=== PATIENT | male | born 1955 | race Caucasian/White ===

== ENCOUNTER 2016-11-05 14:00 | Observation (INO) | payer OTHER ==
[2016-11-05] MEDS ORDERED: guaiFENesin ER TAB 600 MG PO ONE (14:41)
[2016-11-05] MEDS ORDERED: Azithromycin IV(*) 500 MG in NS 0.9% 250 ML* 250 ML IVPB ONE (14:41)
[2016-11-05] MEDS ORDERED: Albuterol/Ipratropium NEB.SOL* Albuterol 2.5 MG/Ipratropium 0.5 MG 3 ML INH ONE (14:41)
[2016-11-05] MEDS ORDERED: NS 0.9% 1000 ML* 1,000 ML IV ONE ×2 (14:41→15:20)
[2016-11-05] MEDS ORDERED: Dexamethasone IV* 4 MG/ML 1 ML (4 MG) IV SLOW PU ONE (14:41)
[2016-11-05 14:57] LABS: Hematocrit 37 % (42-52); Hemoglobin 12.5 g/dl (14.0-18.0); Mean Corpuscular HGB Conc 34 g/dl (31-36); Mean Corpuscular Hemoglobin 34 pg (27-31); Mean Corpuscular Volume 101 fL (80-94); Mean Platelet Volume 9 um3 (7.4-10.4); Red Blood Count 3.65 10^6/ul (4.0-5.4); Red Cell Distribution Width 15 % (10.5-15); White Blood Count 4.6 10^3/ul (3.5-10.8)
[2016-11-05 15:08] LABS: Albumin 4.3 g/dL (3.2-5.2); BUN/Creatinine Ratio 13.7 (8-20); Calcium 8.9 mg/dL (8.6-10.3); EGFR African American 103.3 (>60); EGFR Non-African American 80.3 (>60); Globulin 2.5 g/dL (2-4); Potassium 3.9 mmol/L (3.5-5.0); Total Bilirubin 0.8 mg/dL (0.2-1.0); Total Protein 6.8 g/dL (6.4-8.9)
--- NOTE | 2016-11-05 15:12 | RAD ---
HISTORY: Cough, shortness of breath COMPARISONS: None VIEWS:1: Single frontal portable view of the chest at 2:57 PM FINDINGS: LINES AND TUBES: None. CARDIOMEDIASTINAL SILHOUETTE: The cardiomediastinal silhouette is normal for portable technique. PLEURA: The costophrenic angles are sharp. No pleural abnormalities are noted. LUNG PARENCHYMA: The lungs are clear. ABDOMEN: The upper abdomen is clear. There is no subphrenic gas. BONES AND SOFT TISSUES: No bone or soft tissue abnormalities are noted. IMPRESSION: NO ACTIVE CARDIOPULMONARY DISEASE.
[2016-11-05] MEDS ORDERED: Acetaminophen TAB* 325 MG PO ONE (15:24)
[2016-11-05] MEDS ORDERED: cefTRIAXone(*) 1 GM in NS 0.9% 50 ML* 50 ML IVPB ONE (15:40)
[2016-11-05 15:43] LABS: C Reactive Protein 12.55 mg/L (< 5.00)
--- NOTE | 2016-11-05 15:59 | ED ---
Respiratory - HPI Summary HPI Summary: Patient is a 61 asthmatic who presents to ED with CC of fever, chills, shortness of breath, body aches, sinus pressure and feeling like he can't breathe deep d/t obstructive mucous in the throat. He states his symptoms were acute onset on Thursday night and have progressively become worse. He states he has had something similiar in the past which started as a sinusitis and turned into a PNA. He has a productive cough with what he states is green mucous. On exam, no mucous was seen. He endorses PAULINO, but denies neck pain, or chest pain. He has had both a PNA vac and influenza vac this year. He denies significant health history and takes no medications. He has taken an albuterol inhaler for relief, but has not had improvement in symptoms. - History of Current Complaint Chief Complaint: EDFluSymptoms Stated Complaint: SINUS/THROAT Time Seen by Provider: 11/05/16 14:15 Hx Obtained From: Patient Onset/Duration: Sudden Onset Timing: Constant Initial Severity: Moderate Current Severity: Moderate Pain Intensity: 2 Character: Cough (Productive) Sputum Amount: Moderate Sputum Color: Green Aggravating Factor(s): Deep Breaths Alleviating Factor(s): MDI (Frequency Of Use) - 4-5 times per day, Upright Position, Rest, Oxygen Associated Signs and Symptoms: Fever, SOB - Risk Factors Status Asthmaticus Risk Factors: Negative Pulmonary Embolism Risk Factors: Negative Cardiac Risk Factors: Negative Pseudomonas Risk Factors: Negative Tuberculosis Risk Factors: Negative - Allergy/Home Medications Allergies/Adverse Reactions: Allergies Allergy/AdvReac Type Severity Reaction Status Date / Time No Known Allergies Allergy Verified 11/05/16 14:03 Home Medications: Home Medications NK [No Home Medications Reported] 11/05/16 [History Confirmed 11/05/16] PMH/Surg Hx/FS Hx/Imm Hx Previously Healthy: Yes Infectious Disease History: No Infectious Disease History: Denies: Traveled Outside the [place] in Last 30 Days - Social History Occupation: Employed Full-time Lives: With Family Alcohol Use: Occasionally Hx Substance Use: No Substance Use Type: Reports: None Hx Tobacco Use: No Smoking Status (MU): Never Smoked Tobacco Review of Systems Positive: Fever, Chills, Fatigue Eyes: Negative Positive: Nasal Discharge Positive: Shortness Of Breath, Cough Gastrointestinal: Negative Positive: no symptoms reported, see HPI Musculoskeletal: Negative Neurological: Negative Psychological: Normal All Other Systems Reviewed And Are Negative: Yes Physical Exam Triage Information Reviewed: Yes Vital Signs On Initial Exam: Initial Vitals Temp Pulse Resp BP Pulse Ox 102.3 F 99 20 139/58 99 11/05/16 14:03 11/05/16 14:03 11/05/16 14:03 11/05/16 14:03 11/05/16 14:03 Vital Signs Reviewed: Yes Appearance: Positive: Well-Appearing, Well-Nourished Skin: Positive: Warm, Skin Color Reflects Adequate Perfusion Head/Face: Positive: Normal Head/Face Inspection Eyes: Positive: SIDDHARTH Neck: Positive: Supple, No Lymphadenopathy Respiratory/Lung Sounds: Positive: Clear to Auscultation, Breath Sounds Present , Unable to speak in full sentences Cardiovascular: Positive: Normal, RRR Musculoskeletal: Positive: Normal, Strength/ROM Intact Neurological: Positive: Normal, Speech Normal Psychiatric: Positive: Normal AVPU Assessment: Alert Diagnostics - Vital Signs Vital Signs Temp Pulse Resp BP Pulse Ox 11/05/16 15:30 93 18 99 11/05/16 14:03 102.3 F 99 20 139/58 99 - Laboratory Lab Results: Lab Results 11/05/16 11/05/16 11/05/16 Range/Units 14:27 14:27 14:27 WBC 4.6 (3.5-10.8) 10^3/ul RBC 3.65 L (4.0-5.4) 10^6/ul Hgb 12.5 L (14.0-18.0) g/dl Hct 37 L (42-52) % MCV 101 H (80-94) fL MCH 34 H (27-31) pg MCHC 34 (31-36) g/dl RDW 15 (10.5-15) % Plt Count 190 (150-450) 10^3/ul MPV 9 (7.4-10.4) um3 Neut % (Auto) 75.5 (38-83) % Lymph % (Auto) 10.4 L (25-47) % [place] % (Auto) 13.0 H (1-9) % Eos % (Auto) 0.3 (0-6) % Baso % (Auto) 0.8 (0-2) % Absolute Neuts (auto) 3.5 (1.5-7.7) 10^3/ul Absolute Lymphs (auto) 0.5 L (1.0-4.8) 10^3/ul Absolute Monos (auto) 0.6 (0-0.8) 10^3/ul Absolute Eos (auto) 0 (0-0.6) 10^3/ul Absolute Basos (auto) 0 (0-0.2) 10^3/ul Absolute Nucleated RBC 0 10^3/ul Nucleated RBC % 0 Sodium 126 L (133-145) mmol/L Potassium 3.9 (3.5-5.0) mmol/L Chloride 95 L (101-111) mmol/L Carbon Dioxide 24 (22-32) mmol/L Anion Gap 7 (2-11) mmol/L BUN 13 (6-24) mg/dL Creatinine 0.95 (0.67-1.17) mg/dL Est GFR ( Amer) 103.3 (>60) Est GFR (Non-Af Amer) 80.3 (>60) BUN/Creatinine Ratio 13.7 (8-20) Glucose 122 H (70-100) mg/dL Lactic Acid 1.5 (0.5-2.0) mmol/L Calcium 8.9 (8.6-10.3) mg/dL Total Bilirubin 0.80 (0.2-1.0) mg/dL AST 38 (13-39) U/L ALT 33 (7-52) U/L Alkaline Phosphatase 59 (34-104) U/L Total Creatine Kinase 135 (10-223) U/L C-Reactive Protein 12.55 H (< 5.00) mg/L B-Natriuretic Peptide ( - 100) pg/mL Total Protein 6.8 (6.4-8.9) g/dL Albumin 4.3 (3.2-5.2) g/dL Globulin 2.5 (2-4) g/dL Albumin/Globulin Ratio 1.7 (1-3) 11/05/16 Range/Units 14:27 WBC (3.5-10.8) 10^3/ul RBC (4.0-5.4) 10^6/ul Hgb (14.0-18.0) g/dl Hct (42-52) % MCV (80-94) fL MCH (27-31) pg MCHC (31-36) g/dl RDW (10.5-15) % Plt Count (150-450) 10^3/ul MPV (7.4-10.4) um3 Neut % (Auto) (38-83) % Lymph % (Auto) (25-47) % [place] % (Auto) (1-9) % Eos % (Auto) (0-6) % Baso % (Auto) (0-2) % Absolute Neuts (auto) (1.5-7.7) 10^3/ul Absolute Lymphs (auto) (1.0-4.8) 10^3/ul Absolute Monos (auto) (0-0.8) 10^3/ul Absolute Eos (auto) (0-0.6) 10^3/ul Absolute Basos (auto) (0-0.2) 10^3/ul Absolute Nucleated RBC 10^3/ul Nucleated RBC % Sodium (133-145) mmol/L Potassium (3.5-5.0) mmol/L Chloride (101-111) mmol/L Carbon Dioxide (22-32) mmol/L Anion Gap (2-11) mmol/L BUN (6-24) mg/dL Creatinine (0.67-1.17) mg/dL Est GFR ( Amer) (>60) Est GFR (Non-Af Amer) (>60) BUN/Creatinine Ratio (8-20) Glucose (70-100) mg/dL Lactic Acid (0.5-2.0) mmol/L Calcium (8.6-10.3) mg/dL Total Bilirubin (0.2-1.0) mg/dL AST (13-39) U/L ALT (7-52) U/L Alkaline Phosphatase (34-104) U/L Total Creatine Kinase (10-223) U/L C-Reactive Protein (< 5.00) mg/L B-Natriuretic Peptide 30 ( - 100) pg/mL Total Protein (6.4-8.9) g/dL Albumin (3.2-5.2) g/dL Globulin (2-4) g/dL Albumin/Globulin Ratio (1-3) Result Diagrams: 11/05/16 14:27 11/05/16 14:27 Lab Statement: Any lab studies that have been ordered have been reviewed, and results considered in the medical decision making process. Disposition - Course Course Of Treatment: Febrile at 103.0. Patient treated via sepsis protocol with 2L fluids, zithromax and rocephin and given a nebulizer treatment, mucinex and steroids. Patient not improving with nebulizer treatment. Hospitalist called for hyponatremia, fever and failure to improve on steroids and breathing treaments. - Differential Dx - Cardiopulmonary Differential Diagnoses - Cardiopulmonary: Lower Resp Infection, Sinusitis - Diagnoses Provider Diagnoses: Febrile, Influenza B Discharge - Discharge Plan Condition: Stable Disposition: ADMITTED TO [facility] Discharge Disposition Comment: Discussed with Dr. Sanchez at 4pm who agrees to see patient Referrals: Claudia Yo MD [Primary Care Provider] -
[2016-11-05] MEDS ORDERED: Oseltamivir CAP* 75 MG PO ONE (16:32)
[2016-11-05] MEDS: Benzocaine/Menthol LOZ* 1 LOZENGE PO PRN (17:04)
[2016-11-05] MEDS ORDERED: Acetaminophen TAB* 325 MG PO PRN (17:24)
[2016-11-05] MEDS ORDERED: Albuterol HFA INHALER* 8 gm MDI INH PRN (17:24)
[2016-11-05] MEDS ORDERED: Albuterol 2.5 MG/3 ML NEB.SOL* (0.083%) INH PRN (17:25)
[2016-11-05] MEDS ORDERED: NS 0.9% 1000 ML* 1,000 ML IV SCH (17:30)
[2016-11-05] MEDS: Mometasone 220 MCG MDI INH SCH (19:16)
[2016-11-05] MEDS: Heparin VIAL(*) 5000 UNITS/ML VIAL (FIVE THOUSAND) SUBCUT SCH (20:54)
--- NOTE | 2016-11-05 21:35 | HP ---
HISTORY AND PHYSICAL: DATE OF ADMISSION: 11/05/16 TIME OF EVALUATION: 05.00 p.m. PRIMARY CARE PROVIDER: Dr. Claudia Yo. CHIEF COMPLAINT: Shortness of breath. HISTORY OF PRESENT ILLNESS: Mr. Valentino is a 61-year-old male with a past medical history of asthma who presented to the emergency room with complaints of cough and shortness of breath. He states he was in his usual state of health until 3 days ago. He actually went to a spin class and felt really well. The next day in the morning, he felt like "a train had hit him." He developed rhinorrhea, sinuses pressure, chills, and progressive dry cough initially. The next day, it is associated with shortness of breath and he did now have significant improvement with his albuterol inhaler at home. Today, he had a temperature of 103, had worsening of the shortness of breath to the point he felt that he could not get air in and that is the reason to his emergency room visit. He states that usually his asthma is very well controlled and he seldom needs to use his albuterol inhaler. PAST MEDICAL HISTORY: Asthma. MEDICATION LIST: Albuterol HFA 2 puffs inhaled q.4 hours as needed for shortness of breath. The patient also uses steroid inhaler, but name is not available at this time. ALLERGIES: No known drug allergy. FAMILY HISTORY: Father had a history of heart disease. SOCIAL HISTORY: No history of tobacco, alcohol, or drug use. Surrogate decision maker is his , Cady Valentino. Phone number is [phone]. REVIEW OF SYSTEMS: A 14-point review of systems was performed and all the pertinent negative and positive findings are in the HPI. PHYSICAL EXAMINATION GENERAL: The patient is a pleasant gentleman, sitting up in the ER stretcher, in no acute distress. VITAL SIGNS: Temperature , heart rate is 93, respiratory rate is 18, oxygen saturation is 99% on room air, blood pressure is 139/58. CVS: Normal S1 and S2. Regular rate and rhythm. CHEST: Breath sounds present bilaterally with scattered rhonchi and wheeze. ABDOMEN: Soft. Bowel sounds are present. EXTREMITIES: No edema. NEURO: He is alert, awake, and oriented x3. Able to move all 4 extremities. LABORATORY AND IMAGING DATA: His CBC shows WBC of 4.6, hemoglobin of 12.5, hematocrit of 37, MCV of 101, platelets of 190. His chemistry showed a sodium of 126, potassium 3.9, chloride of 95, bicarb of 24, BUN of 13, creatinine of 0.95, glucose of 122. LFTs are normal. CRP was 12.5. Influenza B was positive. Chest x-ray showed no active cardiopulmonary disease. ASSESSMENT AND PLAN: Mr. Valentino is a 61-year-old male with a past medical history of asthma who presented to the emergency room with fever, cough, and shortness of breath, found to have asthma exacerbation secondary to influenza B. 1. Asthma exacerbation secondary to influenza B. In the emergency room, the patient required multiple breathing treatments. He received steroids and although he is feeling a little better now, he is still a little short of breath. Considering his symptoms at presentation and the number of treatments required in the emergency room, the decision was made to admit the patient as observation for further monitoring overnight. I am going to continue prednisone , bronchodilators, steroid inhalers, and Tamiflu. I believe the process is viral at this time, so antibiotics are not indicated at this point. He is going to be monitored overnight, but I believe that if he is feeling better in the morning, he can probably be discharged home. 2. DVT prophylaxis. The patient has a score of 2 on the DVT Prophylaxis Risk Assessment Guide and he is going to be started on subcutaneous heparin. 3. Code status is full. TIME SPENT: Approximately 45 minutes were spent with the patient and family interview, medical records review, physical examination to complete this admission, more than half of this time was spent [id number] with the patient in coordination of care. CC: Dr. Claudia Yo* [id number]/[facility] #: [id number] JEAN
[2016-11-06] MEDS: Benzocaine/Menthol LOZ* 1 LOZENGE PO PRN (03:11)
[2016-11-06] MEDS: Oseltamivir CAP* 75 MG PO SCH ×2 (05:11→10:25)
[2016-11-06] MEDS: Heparin VIAL(*) 5000 UNITS/ML VIAL (FIVE THOUSAND) SUBCUT SCH (05:12)
[2016-11-06] MEDS ORDERED: Omeprazole CAP* 20 MG PO SCH (06:00)
[2016-11-06 07:42] VITALS: BP 123/71
--- NOTE | 2016-11-06 08:59 | PN ---
Subjective Date of Service: 11/06/16 Interval History: Patient seen and examined at bedside. He reports that his breathing is much better since yesterday and that it "turned around" after 1pm yesterday with all the medicine he received. He is sitting up eating breakfast, no supplemental O2 needed. He denies CP, SOB, abd pain, n/v. Overall, he feels better. Family History: Unchanged from Admission Social History: Unchanged from Admission Past Medical History: Unchanged from Admission Objective Active Medications: Acetaminophen (Tylenol Tab*) 650 mg PO Q6H PRN PRN Reason: pain/fever Albuterol (Ventolin 2.5 Mg/3 Ml Neb.Donna*) 2.5 mg INH Q4H PRN PRN Reason: SOB/WHEEZING Last Admin: 11/06/16 03:20 Dose: 2.5 mg Albuterol (Ventolin Hfa Inhaler*) 2 puff INH Q4H PRN PRN Reason: SOB/WHEEZING Heparin Sodium (Porcine) (Heparin Vial(*)) 5,000 units SUBCUT Q8HR [facility] Last Admin: 11/06/16 05:12 Dose: Not Given Sodium Chloride (Ns 0.9% 1000 Ml*) 1,000 mls @ 100 mls/hr IV PER RATE [facility] Last Admin: 11/06/16 05:08 Dose: 100 mls/hr Mometasone Furoate (Asmanex 220 Mcg Mdi *) 2 puff INH RT.BID [facility] Last Admin: 11/05/16 19:16 Dose: 2 puff Omeprazole (Prilosec Cap*) 20 mg PO DAILY@0600 [facility] Last Admin: 11/06/16 05:10 Dose: 20 mg Oseltamivir Phosphate (Tamiflu Cap*) 75 mg PO BID [facility] Stop: 11/09/16 21:01 Last Admin: 11/06/16 05:11 Dose: 75 mg Prednisone (Deltasone Tab*) 40 mg PO DAILY [facility] Throat Lozenges (Chloraseptic Madison*) 1 madison PO Q2H PRN PRN Reason: SORE THROAT Last Admin: 11/06/16 03:11 Dose: 1 madison Vital Signs 11/05/16 11/05/16 11/05/16 17:52 18:35 19:17 Temperature 98.8 F 98.8 F Pulse Rate 78 78 73 Respiratory 18 18 Rate Blood Pressure 117/58 117/58 (mmHg) O2 Sat by Pulse 97 97 98 Oximetry 11/05/16 11/06/16 11/06/16 23:36 03:10 03:20 Temperature 98.4 F 98.8 F Pulse Rate 66 66 69 Respiratory 16 16 Rate Blood Pressure 115/60 116/66 (mmHg) O2 Sat by Pulse 97 98 99 Oximetry 11/06/16 07:31 Temperature 98.7 F Pulse Rate 71 Respiratory 16 Rate Blood Pressure 123/71 (mmHg) O2 Sat by Pulse 97 Oximetry Oxygen Devices in Use Now: None Appearance: Male patient, sitting up in bed, in NAD Eyes: PERRLA Ears/Nose/Mouth/Throat: Clear Oropharnyx, Mucous Membranes Moist Neck: NL Appearance and Movements; NL JVP Respiratory: Symmetrical Chest Expansion and Respiratory Effort, - - good aeration in all lung arboleda Cardiovascular: NL Sounds; No Murmurs; No JVD, RRR Abdominal: NL Sounds; No Tenderness; No Distention Extremities: No Edema Skin: No Rash or Ulcers Neurological: Alert and Oriented x 3 Lines/Tubes/Other Access: Clean, Dry and Intact Peripheral IV Nutrition: Taking PO's Result Diagrams: 11/05/16 14:27 11/06/16 10:20 Additional Lab and Data: Lab Results 11/05/16 11/05/16 11/05/16 Range/Units 14:27 14:27 14:27 WBC 4.6 (3.5-10.8) 10^3/ul RBC 3.65 L (4.0-5.4) 10^6/ul Hgb 12.5 L (14.0-18.0) g/dl Hct 37 L (42-52) % MCV 101 H (80-94) fL MCH 34 H (27-31) pg MCHC 34 (31-36) g/dl RDW 15 (10.5-15) % Plt Count 190 (150-450) 10^3/ul MPV 9 (7.4-10.4) um3 Neut % (Auto) 75.5 (38-83) % Lymph % (Auto) 10.4 L (25-47) % [place]kinson % (Auto) 13.0 H (1-9) % Eos % (Auto) 0.3 (0-6) % Baso % (Auto) 0.8 (0-2) % Absolute Neuts (auto) 3.5 (1.5-7.7) 10^3/ul Absolute Lymphs (auto) 0.5 L (1.0-4.8) 10^3/ul Absolute Monos (auto) 0.6 (0-0.8) 10^3/ul Absolute Eos (auto) 0 (0-0.6) 10^3/ul Absolute Basos (auto) 0 (0-0.2) 10^3/ul Absolute Nucleated RBC 0 10^3/ul Nucleated RBC % 0 Sodium 126 L (133-145) mmol/L Potassium 3.9 (3.5-5.0) mmol/L Chloride 95 L (101-111) mmol/L Carbon Dioxide 24 (22-32) mmol/L Anion Gap 7 (2-11) mmol/L BUN 13 (6-24) mg/dL Creatinine 0.95 (0.67-1.17) mg/dL Est GFR ( Amer) 103.3 (>60) Est GFR (Non-Af Amer) 80.3 (>60) BUN/Creatinine Ratio 13.7 (8-20) Glucose 122 H (70-100) mg/dL Lactic Acid 1.5 (0.5-2.0) mmol/L Calcium 8.9 (8.6-10.3) mg/dL Total Bilirubin 0.80 (0.2-1.0) mg/dL AST 38 (13-39) U/L ALT 33 (7-52) U/L Alkaline Phosphatase 59 (34-104) U/L Total Creatine Kinase 135 (10-223) U/L C-Reactive Protein 12.55 H (< 5.00) mg/L B-Natriuretic Peptide ( - 100) pg/mL Total Protein 6.8 (6.4-8.9) g/dL Albumin 4.3 (3.2-5.2) g/dL Globulin 2.5 (2-4) g/dL Albumin/Globulin Ratio 1.7 (1-3) 11/05/16 Range/Units 14:27 WBC (3.5-10.8) 10^3/ul RBC (4.0-5.4) 10^6/ul Hgb (14.0-18.0) g/dl Hct (42-52) % MCV (80-94) fL MCH (27-31) pg MCHC (31-36) g/dl RDW (10.5-15) % Plt Count (150-450) 10^3/ul MPV (7.4-10.4) um3 Neut % (Auto) (38-83) % Lymph % (Auto) (25-47) % [place]kinson % (Auto) (1-9) % Eos % (Auto) (0-6) % Baso % (Auto) (0-2) % Absolute Neuts (auto) (1.5-7.7) 10^3/ul Absolute Lymphs (auto) (1.0-4.8) 10^3/ul Absolute Monos (auto) (0-0.8) 10^3/ul Absolute Eos (auto) (0-0.6) 10^3/ul Absolute Basos (auto) (0-0.2) 10^3/ul Absolute Nucleated RBC 10^3/ul Nucleated RBC % Sodium (133-145) mmol/L Potassium (3.5-5.0) mmol/L Chloride (101-111) mmol/L Carbon Dioxide (22-32) mmol/L Anion Gap (2-11) mmol/L BUN (6-24) mg/dL Creatinine (0.67-1.17) mg/dL Est GFR ( Amer) (>60) Est GFR (Non-Af Amer) (>60) BUN/Creatinine Ratio (8-20) Glucose (70-100) mg/dL Lactic Acid (0.5-2.0) mmol/L Calcium (8.6-10.3) mg/dL Total Bilirubin (0.2-1.0) mg/dL AST (13-39) U/L ALT (7-52) U/L Alkaline Phosphatase (34-104) U/L Total Creatine Kinase (10-223) U/L C-Reactive Protein (< 5.00) mg/L B-Natriuretic Peptide 30 ( - 100) pg/mL Total Protein (6.4-8.9) g/dL Albumin (3.2-5.2) g/dL Globulin (2-4) g/dL Albumin/Globulin Ratio (1-3) Microbiology and Other Data: Microbiology 03/30/17 03:05 Gram Stain - Final Sputum Expectorated Assess/Plan/Problems-Billing Assessment: Mr. Valentino is a 61 yo male with a PMH of asthma who presented to the ED on 11/05 with c/o fever, cough, and SOB that is secondary to an asthma exacerbation and influenza B. - Patient Problems (1) Asthma with exacerbation Comment: Improved today, with no supplemental O2 needs. Exacerbation likely secondary to influenza. Continue Tamiflu, prednisone, mometasone inhaler, nebulizer. CM setting up home nebulizer machine to be used PRN. (2) Influenza B Code(s): J10.1 - FLU DUE TO OTH IDENT INFLUENZA VIRUS W OTH RESP MANIFEST Comment: Afebrile overnight. Continue Tamiflu. (3) Hyponatremia Code(s): E87.1 - HYPO-OSMOLALITY AND HYPONATREMIA Comment: Resolved with IVF. (4) DVT prophylaxis Code(s): YWC8234 - Comment: SQ heparin Status and Disposition: OBV admit. D/c to home.
[2016-11-06] MEDS ORDERED: predniSONE TAB* 20 MG PO SCH (09:00)
[2016-11-06] MEDS: Mometasone 220 MCG MDI INH SCH (09:26)
[2016-11-06 11:02] LABS: BUN/Creatinine Ratio 15.2 (8-20); Calcium 8.6 mg/dL (8.6-10.3); EGFR African American 127.8 (>60); EGFR Non-African American 99.4 (>60); Potassium 4.1 mmol/L (3.5-5.0)
--- NOTE | 2016-11-07 03:00 | DS ---
DISCHARGE SUMMARY: DATE OF ADMISSION: 11/05/16 DATE OF DISCHARGE: 11/06/16 PRIMARY CARE PHYSICIAN: Dr. Yo. PROVIDER: Reece Romero NP. ATTENDING PHYSICIAN: Dr. Mayda Hennessy *(as dictated by Reece Romero NP). PRIMARY CARE PHYSICIAN: Dr. Claudia Yo. PRIMARY DISCHARGE DIAGNOSES: 1. Asthma exacerbation. 2. Influenza B. MEDICATIONS AT DISCHARGE: 1. Albuterol inhaler 2 puffs inhaled q.4 hours p.r.n. 2. Prednisone 40 mg daily x4 additional days. 3. Tamiflu 75 mg b.i.d. x4 additional days. 4. Asmanex inhaler 2 puffs inhaled b.i.d. 5. Albuterol nebulizer 2.5 mg inhaled q.4 hours p.r.n. HOSPITAL COURSE OF STAY: For full details, please refer to the H and P provided by Dr. Ford on 11/05/16. In summary, Mr. Valentino is a 61-year-old male with a past medical history significant only for asthma, who presented to the emergency room with complaints of cough and shortness of breath. He was noted to have a temperature of 103 and worsening shortness of breath to the point that he was having difficulty getting air in. The patient reports that his asthma is usually very well controlled and he seldom uses his albuterol inhaler. The patient was admitted for further monitoring with concern for asthma exacerbation secondary to influenza B. The patient did have a positive flu swab. He did receive steroids as well as nebulizer treatments. He was also started on Tamiflu. With his positive flu swab, it was believed that this is primarily viral so we did not continue with any antibiotics. The patient reports improvement with the aforementioned therapies and did well last evening and this morning. He is not requiring any supplemental O2. His O2 saturations are within normal limits. He has also been afebrile since admission. Of note, the patient did have a sodium level of 126 yesterday in the ER, today it was 133. This was likely secondary to dehydration and acute illness. The patient feels much improved and feels as if he can continue to manage his illness at home. He does not have a nebulizer at home. We did set this up through [facility] [place]. I have also reported to the patient that he should continue on the Asmanex inhaler at least for another week or two until he is fully recovered. He has been advised to continue Tamiflu and prednisone until they are completed. The patient verbalized understanding. At the time of discharge, the patient was in stable condition with vital signs as follows: 98.7 temperature, heart rate 78, respiratory rate 16, blood pressure 123/71 and O2 saturation 98% on room air. He is alert and oriented. Lungs are clear to auscultation with only mild expiratory wheezes in the bases. Heart rate regular. The patient has no acute complaints. No acute nursing concerns. CONCERNS AT DISCHARGE: Mr. Valentino will be discharged to home on 11/06/16 with plan to follow up with his PCP on 11/12/16. DIET: May resume previous diet. The patient encouraged to drink plenty of fluids. ACTIVITY: As tolerated. CONDITION: Improved, stable. DISPOSITION: To home. TIME SPENT: Time spent on this discharge was approximately 40 minutes. Again, this is only a brief summary of the patient's hospital course of stay. For full details, please refer to the full medical record. If you have any further questions or need further assistance, please feel free to contact me at . REECE ROMERO NP CC: Dr. Yo* [id number]/[facility] #: [id number] MTDD
== END 2016-11-06 11:15 | disposition home or self-care (01) ==
LOC: ED 14:00 → MED 16:39
PROVIDERS: ADMIT Internal Medicine; ATTEND Internal Medicine
DX: J45.901 Unspecified asthma with (acute) exacerbation (principal); J10.1 Influenza due to other identified influenza virus with other respiratory manifestations; E87.1 Hypo-osmolality and hyponatremia
CPT/HCPCS: 36415; 71010; 80048; 80053; 82550; 83605; 83880; 85025; 86140; 87040; 87070; 87205; 87502; 94640; 94760; 96365; 96367; 99284; A9270-GY; G0378; J0456; J0696; J1100; J7512

== ENCOUNTER 2019-10-20 05:39 | Day surgery (SDC) | payer MEDICARE ==
--- NOTE | 2019-05-26 06:29 | HP ---
HISTORY AND PHYSICAL: DATE OF ADMISSION/SURGERY: 06/07/19 DATE OF OFFICE VISIT: 05/20/19 SURGEON: Alannah Bernstein MD * (DICTATED BY SENDY DUNN) PROCEDURE: Right knee arthroscopy with partial meniscectomy, possible chondroplasty, possible synovectomy, possible plica excision. CHIEF COMPLAINT: Right knee pain. HISTORY OF PRESENT ILLNESS: Mr. Valentino is a 64-year-old gentleman with complaints of right knee pain. He has elected to proceed with a right knee arthroscopy. PAST MEDICAL HISTORY: Asthma and basal cell carcinoma. PAST SURGICAL HISTORY: Sinus surgery x3, hernia repair, right shoulder rotator cuff repair. CURRENT MEDICATIONS: Albuterol as needed. ALLERGIES: No known drug allergies. FAMILY HISTORY: Diabetes. SOCIAL HISTORY: He is a 64-year-old gentleman, lives with his . He does not smoke or use drugs. REVIEW OF SYSTEMS: A complete 14-point review of systems was reviewed with the patient. It was all negative or noncontributory. He denies history of DVT, PE , hepatitis, HIV, or anesthesia problems. PHYSICAL EXAMINATION GENERAL: He is well developed, well nourished, in no acute distress. VITAL SIGNS: He stands 71 inches tall, weighs 150 pounds. His blood pressure is 108/62, his heart rate is 72. HEENT: Normocephalic, atraumatic. NECK: Supple. No palpable lymph nodes. PULMONARY: The lungs are clear to auscultation bilaterally. CARDIO: Regular rate and rhythm. Strong S1, S2. ABDOMEN: Soft, nontender, nondistended. NEUROLOGICAL: He is alert and oriented x3. MUSCULOSKELETAL: Right lower extremity: The skin is intact. There are no open wounds or abrasions. There is a moderate effusion of the right knee joint. He has tenderness over the medial joint line. Positive Apley's, positive Mat's. He is able to dorsiflex and plantarflex. He has a 2+ dorsalis pedis pulse. ASSESSMENT AND PLAN: Mr. Valentino is a 64-year-old gentleman with continued complaints of right knee pain. An MRI confirms meniscus tear. He has elected to proceed with a right knee arthroscopy with partial meniscectomy, possible chondroplasty, possible synovectomy, and possible plica excision. The surgery is scheduled for 06/07/[address] Bernstein discussed the risks and benefits of the surgery at today's visit and all of his questions were answered. He will follow up with Dr. Bernstein in 2 weeks after the surgery. SENDY DUNN [id number]/[facility] #: [id number] JEAN
--- NOTE | 2019-10-12 16:25 | HP ---
Amended report to enter cosigning physician on report. HISTORY AND PHYSICAL: DATE OF ADMISSION/SURGERY: 10/20/19 DATE OF OFFICE VISIT: 10/12/19 SURGEON: Alannah Bernstein MD* PROCEDURE: Right knee arthroscopy with partial meniscectomy, possible chondroplasty, possible synovectomy, and possible plica excision. CHIEF COMPLAINT: Right knee pain. HISTORY OF PRESENT ILLNESS: Mr. Valentino is a 65-year-old gentleman with complaints of right knee pain. An MRI confirms a meniscus tear. He has elected to proceed with a right knee arthroscopy. PAST MEDICAL HISTORY: Asthma. PAST SURGICAL HISTORY: Sinus surgery x3, hernia repair, and right shoulder rotator cuff repair. CURRENT MEDICATIONS: 1. Albuterol sulfate 1 to 2 puffs every 4 hours as needed. 2. QVAR 1 puff a day. 3. Vitamin B12 complex. 4. Probiotic. ALLERGIES: ARESTIN, MINOCYCLINE, and LEVOFLOXACIN. FAMILY HISTORY: Diabetes. SOCIAL HISTORY: He is a 65-year-old gentleman. He lives with his . He does not smoke. REVIEW OF SYSTEMS: A complete 14-point review of systems was reviewed with the patient. It was all negative and noncontributory. He denies history of DVT, PE , hepatitis, HIV, or anesthesia problems. PHYSICAL EXAMINATION GENERAL: He is well developed, well nourished, in no acute distress. VITAL SIGNS: He stands 5 feet 11 inches tall, weighs 154 pounds. His blood pressure is 112/62, his heart rate is 59. HEENT: Normocephalic, atraumatic. NECK: Supple. No palpable lymph nodes. PULMONARY: The lungs are clear to auscultation bilaterally. CARDIO: Regular rate and rhythm. Strong S1, S2. ABDOMEN: Soft, nontender, nondistended. MUSCULOSKELETAL: Right lower extremity: The skin is intact. There are no open wounds or abrasions. There is moderate effusion of the right knee joint. He has some tenderness along the medial joint line. Positive Mat's, positive Apley's, negative Adam's. He has 2+ dorsalis pedis pulse. He is able to dorsiflex and plantarflex. NEUROLOGICAL: He is alert and oriented x3. ASSESSMENT AND PLAN: Mr. Valentino is a 65-year-old gentleman with complaints of right knee pain secondary to medial meniscus tear. He has elected to proceed with a right knee arthroscopy with partial meniscectomy, possible chondroplasty , possible synovectomy, and possible plica excision. The surgery is scheduled for 10/20/[address] Bernstein discussed the risks and benefits of the surgery at today's visit and all of his questions were answered. He will follow up with Dr. Bernstein 2 weeks after the surgery. SENDY DUNN [id number]/[facility] #: [id number] MTDJada
[~2019-10-20 05:39] MED LIST: Buffered Lidocaine 1% SYRIN* 1 ML/SYRINGE INTRADERM ONE
[2019-10-20] MEDS ORDERED: Dexamethasone IV* 4 MG/ML 1 ML (4 MG) IV SLOW PU ONE (06:00)
[2019-10-20] MEDS ORDERED: Lactated Ringers 1000 ML Bag* 1,000 ML IV SCH (06:00)
[2019-10-20] MEDS ORDERED: Dexamethasone IV* 4 MG/ML 1 ML (4 MG) ONE (06:00)
[2019-10-20] MEDS ORDERED: Famotidine IV* 10 MG/ML 2 ML (20 mg) IV ONE (06:00)
[2019-10-20] MEDS ORDERED: ceFAZolin 2 GM PREMIX in ORs 2 GM/50 ML BAG ONE (06:01)
[2019-10-20] MEDS ORDERED: Famotidine IV* 10 MG/ML 2 ML (20 mg) ONE (06:01)
[2019-10-20] MEDS ORDERED: methylPREDNISolone ACETATE 80* 80 MG/ML 1 ML VIAL ONE (06:56)
[2019-10-20] MEDS ORDERED: ROPIVACAINE 5 MG/ML 30 ML BTL (0.5%) ONE (06:56)
[2019-10-20] MEDS ORDERED: EPINEPHRINE 1 MG/ML 1 ML VIAL ONE (06:56)
[2019-10-20] MEDS ORDERED: Midazolam* 1 MG/ML 5 ML VIAL (5 MG) ONE (07:08)
[2019-10-20] MEDS ORDERED: fentaNYL* 50 MCG/ML 2 ML VIAL (100 MCG VIAL) ONE (07:08)
[2019-10-20] MEDS ORDERED: fentaNYL* 50 MCG/ML 2 ML VIAL (100 MCG VIAL) IV PRN (07:26)
[2019-10-20] MEDS ORDERED: HYDROcodone/ACETAMIN 5-325 MG* 1 TAB PO PRN (07:26)
[2019-10-20] MEDS ORDERED: oxyCODONE/Acetamin 5/325 MG* TAB PO PRN (07:26)
[2019-10-20] MEDS ORDERED: DiMENhydriNATE IV* 50 MG/ML VIAL IV PUSH PRN (07:26)
[2019-10-20] MEDS ORDERED: Naloxone* 0.4 MG/ML 1 ML VIAL IV PRN (07:26)
[2019-10-20] MEDS ORDERED: Propofol* 10 MG/ML 20 ML BTL ONE (07:33)
[2019-10-20] MEDS ORDERED: Lidocaine 2% PF * 5 ML VIAL ONE (07:33)
[2019-10-20] MEDS ORDERED: Ketorolac INJ* 30 MG/ML 1 ML VIAL ONE (07:42)
[2019-10-20] MEDS ORDERED: EPHEDrine (Pressors)* 50 MG/ML VIAL ONE (07:44)
[2019-10-20] MEDS ORDERED: Ondansetron INJ* 2 MG/ML VIAL ONE (08:14)
[2019-10-20 09:52] VITALS: BP 118/62
--- NOTE | 2019-10-21 00:46 | OP ---
DATE OF OPERATION: 10/20/19 - [facility] DATE OF : 53 SURGEON: Alannah Bernstein MD AVIONICS SYSTEMS ENGINEER: SENDY Vail. Ms. Martinez did help throughout the procedure with preparation of the leg, wound retraction, manipulation of the knee, and wound closure. ANESTHESIOLOGIST: Dr. Spring. ANESTHESIA: General. PRE-OP DIAGNOSIS: Right knee medial meniscus tear. POST-OP DIAGNOSIS: Right knee medial meniscus tear, mild to moderate osteoarthritic changes. OPERATIVE PROCEDURE: Right knee arthroscopy with partial medial meniscectomy. ESTIMATED BLOOD LOSS: Less than 25 cc. COMPLICATIONS: None. SPECIMEN: None. BRIEF HISTORY/INDICATION: Mr. Valentino is a 64-year-old gentleman first injured the right knee while playing kickball. He has had mechanical symptoms in the right knee consistent with medial meniscus tear. Medial meniscus tear was confirmed on MRI. He has failed conservative treatments and elected to have right knee arthroscopy, partial medial meniscectomy. Informed consent was obtained from the patient. He understood the risks of surgery included but were not limited to bleeding, infection, damage to nearby structures, continued pain, need for further surgery, intraoperative complications, re-tear of the meniscus, progression of arthritis, stroke, heart attack, blood clot, and . He wished to proceed. INTRAOPERATIVE FINDINGS: Intraoperatively, the patient was noted to have a grade 2 or 3 Outerbridge cartilage changes along medial patellar facet as well as the medial femoral condyle. He had a complex type tear in the red-white and red-red zone of the medial meniscus. DESCRIPTION OF PROCEDURE: Mr. Valentino was identified in the preanesthesia unit. His right lower extremity was marked as the correct operative site. Informed consent was signed and placed in the chart. The patient was taken to the operating room and placed under anesthesia. Right lower extremity was prepped and draped in the usual sterile fashion. Preop time-out was made to correctly identify the patient, side and site. Appropriate perioperative antibiotics were given within 1 hour of incision. A 0.5 cm lateral portal incision was made and trocar was introduced. As soon as the light and water sources were turned on, there was visualization of the suprapatellar pouch. A tour of the knee joint was performed. Suprapatellar pouch showed no obvious abnormalities. Patellofemoral compartment showed some grade 2 and 3 Outerbridge cartilage changes along the patellar facet mainly. Medial gutters showed no plica or loose bodies. Medial compartment showed some mild grade 2 and 3 Outerbridge cartilage changes along the medial femoral condyle posteriorly. There was a complex tear involving the posterior 50% of the medial meniscus. ACL and PCL appeared to be intact. The knee was placed in a farvef-ai-egly position. The lateral meniscus showed no obvious tear. There was minimal degenerative change in the lateral compartment. Lateral gutter had no abnormality. Under direct visualization, a medial portal incision was made. A probe was introduced and a second tour of of the knee joint was performed. There were no additional findings noted. The medial meniscus tear had both labial and linear components with displaced fragments to the joint base. The meniscus tear involved the posterior 50% of the medial meniscus in the red-white and red-red zone. Straight biter and shaver were used to perform partial medial meniscectomy. A smooth border of the medial meniscus was obtained. Further probing of the meniscus showed no additional tears. Radiofrequency ablation wand was used to further smooth the edges of the meniscus. The knee was copiously irrigated with sterile saline. All instruments were removed. Incisions were closed with 3-0 nylon suture. Sterile Xeroform, 4x4's, and Webril were used to cover the incisions. Linwood wrap and cold packs were placed over this. The patient's anesthesia was reversed without difficulty. He was taken to the PACU in stable condition. The patient will be weightbearing as tolerated. He will have aspirin for DVT prophylaxis. He will follow up in 2 weeks' time for suture removal. [id number]/[facility] #: [id number] [facility]PITALJada
== END 2019-10-20 09:51 | disposition home or self-care (01) ==
LOC: OR 05:39
PROVIDERS: ATTEND Orthopaedic Surgery Adult Reconstructive Orthopaedic Surgery
DX: S83.231A Complex tear of medial meniscus, current injury, right knee, initial encounter (principal); M17.11 Unilateral primary osteoarthritis, right knee; M25.561 Pain in right knee; M25.461 Effusion, right knee; J45.909 Unspecified asthma, uncomplicated; D46.9 Myelodysplastic syndrome, unspecified; Z79.51 Long term (current) use of inhaled steroids; Z88.1 Allergy status to other antibiotic agents; Z88.8 Allergy status to other drugs, medicaments and biological substances; Z85.828 Personal history of other malignant neoplasm of skin; X58.XXXA Exposure to other specified factors, initial encounter; Y92.9 Unspecified place or not applicable
CPT/HCPCS: J0690; J1040; J1100; J1885; J2250; J2405; J2704; J2795; J3010